=== PATIENT | female | born 1950 | race Caucasian/White ===

== ENCOUNTER → 2017-10-02 | Day surgery (SDC) | payer OTHER ==
[~2017-10-02] MED LIST: CHERATUSSIN AC118 M1 PO; COMBIVENT RESPIM4 GM INH; NORCO 325 MG-51 TAB PO; OXYCODONE5 MG PO; PREDNISONE50 M1 PO; SIMVASTATIN20 MG PO; VALTREX1 GM PO; VENLAFAXINE HCL75 M1 PO; VENLAFAXINE HYD75 M1 PO; ZITHROMAX250 M2 PO
--- NOTE | 2017-10-02 11:57 | Operative Report ---
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 Post-Operative Diagnosis: Same Estimated Blood Loss: scant Surgeon/Preanalytics Team Lead: Ileana YOUNG,Kenny Fry Anesthesia: tiva Specimens: Deep cone and superficial, Operative/Procedure Note Note: The patient was brought to the operating room and timeout was performed while the patient was awake after the induction of anesthesia patient was prepped and draped in usual sterile fashion the cervix was infiltrated with a dilute solution of 1% lidocaine with epinephrine Lugol's solution was applied to the cervix outlining the area of dysplasia a large loop electrode was used to remove the exocervix and much of the endocervical canal this was followed by a small loop electrode to remove the deep endocervical canal electrocautery was used to cauterize margins and Monsel solution was placed hemostasis was excellent patient was then awakened to recovery room in good condition
== END ==
LOC: STS 02:42
DX: N87.1 Moderate cervical dysplasia (principal); R87.810 Cervical high risk human papillomavirus (HPV) DNA test positive; Z85.3 Personal history of malignant neoplasm of breast; J44.9 Chronic obstructive pulmonary disease, unspecified; Z87.891 Personal history of nicotine dependence
CPT/HCPCS: J0131; J2250